=== PATIENT | male | born 1965 | race Caucasian/White ===

== ENCOUNTER 2017-03-02 07:43 | Day surgery (SDC) | payer OTHER ==
[~2017-03-02] VITALS: Ht 167.6 cm; Wt 86.2 kg
[~2017-03-02 07:43] MED LIST: 0.9% Sodium Chloride 1,000 ML IV SCH; CITA40TA13 PO; KLO5T PO; MULT-1018 PO; Sodium Chloride LOK Flush 10 mL Syringe IV PRN; fentaNYL-PF 50 mCg/mL 2 mL Inj IVPUSH PRN
[2017-03-02 08:15] VITALS: BP 115/74; PULSE 68; RESP 12; O2SAT 94
--- NOTE | 2017-03-02 08:54 | PCM.ENDCOL ---
Colonoscopy Date of Service: Mar 02, 2017 Physician Osbaldo Willis MD Pre Procedure Diagnosis: Screening family history of colon cancer and polyp Post Procedure Dx & Findings: Polyps hemorrhoids diverticuli Procedure Colonoscopy PROCEDURE IN DETAIL: Prep adequate Withdrawal time 15 minutes After unremarkable rectal examination the Olympus video colonoscope was inserted patient's anal canal and was advanced to cecum. Landmarks were identified including the ileocecal valve and appendiceal orifice. Scope was withdrawn systematically. Visualized colonic mucosa showed healthy shiny mucosa with normal healthy-appearing vasculature. In the transverse colon there were 2 polyps. Both were 2-3 mm in size. These were removed completely using cold snare. In the sigmoid colon there were total of 5 polyps. The largest was 1 cm in size. This was removed completely using hot snare. 2 clips deployed. Another one was about 3 mm in size which was removed completely using cold snare. The other 3 were 1 mm or less. These were all removed completely using cold forceps. A few small diverticuli. In the rectum retroflexion was done which showed hemorrhoids. Anal canal was inspected carefully on the way out and hemorrhoids noted. Impression Polyp 7 status post complete removal Diverticuli Hemorrhoids Family history of colon cancer and polyp. Recommendation Repeat colonoscopy 3 years Diverticular diet Presedation Assessment Risks and Benefits Informed consent was obtained from the patient after all risks and benefits including but not limited to drug reaction, infection, pain, bleeding, perforation, as well as alternatives were discussed. Patient monitoring Continuous pulse oximetry, cardiac monitoring, blood pressure monitoring, IV access, and oxygen at 2L per nasal cannula. Periprocedural Fentanyl: Fentanyl 100mcg Incrementally Midazolam: Midazolam 4mg Incrementally Complications There were no periprocedural complications identified. Post Procedure Plan Post Procedure Recommendations 1. Restrict activities today. 2. Resume normal activities in the morning. 3. Resume medications. 4. Patient informed of normal post procedure side effects as bloating, drowsiness, blood streaking in the stool. 5. average risk CRCS. If colon polyps come back as: -Hyperplastic- can repeat colonoscopy in 10 years -Tubular adenoma- repeat colonoscopy in 5 years -Tubulovillous/villous adenoma- repeat colonoscopy in 3 years -If any dysplasia- return to clinic as soon as possible 6. Please don't hesitate to call me with any questions. Osbaldo Willis MD Mar 02, 2017 08:54
[2017-03-02 08:58] VITALS: BP 113/67; PULSE 69; RESP 14; O2SAT 95
[2017-03-02 09:06] VITALS: BP 110/77; PULSE 89; RESP 16; O2SAT 96
--- NOTE | 2017-03-04 12:08 | PATH ---
SURGICAL PATHOLOGY Attending Physician:Osbaldo Willis M.D. CASE STATUS: Signed Out PATIENT NAME: VANESSA RENTERIA PID: [id number] : 1965 DATE COLLECTED:03/02/2017 17:25 SPECIMEN: 1: Colon, Polyp 2: Colon, Polyp CLINICAL HISTORY: 1. TRANSVERSE POLYP X2 2. 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 2.SIGMOID COLON POLYPS: TUBULAR ADENOMA INVOLVING MULTIPLE BIOPSY FRAGMENTS. HYPERPLASTIC POLYP INVOLVING MULTIPLE BIOPSY FRAGMENTS. ICD10 D12.5 GROSS DESCRIPTION: The specimen is received in two formalin filled containers labeled with the patient's name. 1). The specimen is sublabeled "transverse polyps" and consists of multiple portions of tissue which aggregate to 0.4 x 0.4 x 0.2 CM. The specimen is entirely submitted in cassette 1A. 2). The specimen is sublabeled "sigmoid polyp" and consists of multiple portions of tissue which aggregate to 0.6 x 0.6 x 0.5 CM. The specimen is entirely submitted in 2A. 03/02/2017 [facility] MICRO DESCRIPTION: See diagnosis. ICD-9 CODES: CPT CODES: 1: 07485 2: 90235 Electronically Signed Out Telly Lopes MD [facility] [address], [place] [address] Technical component performed at [facility], [facility] [address], [place], [address]
== END 2017-03-02 23:59 | disposition home or self-care (01) ==
LOC: END 07:43
PROVIDERS: ATTEND Internal Medicine
DX: Z12.11 Encounter for screening for malignant neoplasm of colon (principal); Z80.0 Family history of malignant neoplasm of digestive organs; Z83.71 Family history of colonic polyps; D12.3 Benign neoplasm of transverse colon; D12.5 Benign neoplasm of sigmoid colon; K64.9 Unspecified hemorrhoids; K57.30 Diverticulosis of large intestine without perforation or abscess without bleeding; E78.5 Hyperlipidemia, unspecified; G61.9 Inflammatory polyneuropathy, unspecified; K21.9 Gastro-esophageal reflux disease without esophagitis; J30.2 Other seasonal allergic rhinitis; F41.8 Other specified anxiety disorders; E66.3 Overweight; Z68.31 Body mass index [BMI] 31.0-31.9, adult
CPT/HCPCS: 45380; 45385; 99153; G0500; J2250; J3010; J7030